=== PATIENT | female | born 1980 | race Caucasian/White ===

== ENCOUNTER 2018-09-11 08:25 | Emergency (ER) | payer OTHER ==
--- NOTE | 2018-09-11 09:24 | EDPHYS ---
Physician Documentation [facility] Name: Iraida Harris Age: 38 yrs Sex: Female : 1980 Arrival Date: 09/11/2018 Time: 08:29 Bed 16 Private MD: Shan Reno E ED Physician Jeromy Mcintosh HPI: 09/11 09:21 This 38 yrs old Female presents to ER via Ambulatory with complaints of jr8 Cough, Congestion. 09:21 The patient or guardian reports cough, that is intermittent, described as moderate, jr8 with productive sputum, that is white. Onset: The symptoms/episode began/occurred gradually, 3 day(s) ago. Severity of symptoms: At their worst the symptoms were mild, in the emergency department the symptoms are unchanged. Modifying factors: The symptoms are alleviated by nothing, the symptoms are aggravated by nothing. Associated signs and symptoms: Pertinent positives: rhinorrhea, nasal discharge. The patient has not experienced similar symptoms in the past. The patient has not recently seen a physician. 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 - Social history:: Smoking status: Patient/guardian denies using tobacco. - Ebola Screening: : Patient negative for fever greater than or equal to 101.5 degrees Fahrenheit, and additional compatible Ebola Virus Disease symptoms Patient denies exposure to infectious person Patient denies travel to an Ebola-affected area in the 21 days before illness onset No symptoms or risks identified at this time. ROS: 09:21 Eyes: Negative for injury, pain, redness, and discharge, Neck: Negative for injury, jr8 pain, and swelling, Cardiovascular: Negative for chest pain, palpitations, and edema, Abdomen/GI: Negative for abdominal pain, nausea, vomiting, diarrhea, and constipation, Back: Negative for injury and pain, MS/Extremity: Negative for injury and deformity, Skin: Negative for injury, rash, and discoloration, Neuro: Negative for headache, weakness, numbness, tingling, and seizure. 09:21 ENT: Positive for nasal discharge, rhinorrhea, sinus congestion, sinus pain, sore throat. 09:21 Respiratory: Positive for cough, Negative for shortness of breath, wheezing. Exam: 09:21 Eyes: Pupils equal round and reactive to light, extra-ocular motions intact. Lids and jr8 lashes normal. Conjunctiva and sclera are non-icteric and not injected. Cornea within normal limits. Periorbital areas with no swelling, redness, or edema. ENT: Nares patent. Mild turbinate swelling with mild discharge noted. no septal abnormalities noted. Tympanic membranes are normal and external auditory canals are clear. Oropharynx with no redness, swelling, or masses, exudates, or evidence of obstruction, uvula midline. Mucous membranes moist. Neck: Trachea midline, no thyromegaly or masses palpated, and no cervical lymphadenopathy. Supple, full range of motion without nuchal rigidity, or vertebral point tenderness. No Meningismus. Cardiovascular: Regular rate and rhythm with a normal S1 and S2. No gallops, murmurs, or rubs. Normal PMI, no JVD. No pulse deficits. Respiratory: Lungs have equal breath sounds bilaterally, clear to auscultation and percussion. No rales, rhonchi or wheezes noted. No increased work of breathing, no retractions or nasal flaring. Abdomen/GI: Soft, non-tender, with normal bowel sounds. No distension or tympany. No guarding or rebound. No evidence of tenderness throughout. Back: No spinal tenderness. No costovertebral tenderness. Full range of motion. Skin: Warm, dry with normal turgor. Normal color with no rashes, no lesions, and no evidence of cellulitis. MS/ Extremity: Pulses equal, no cyanosis. Neurovascular intact. Full, normal range of motion. Neuro: Awake and alert, GCS 15, oriented to person, place, time, and situation. Cranial nerves II-XII grossly intact. Motor strength 5/5 in all extremities. Sensory grossly intact. Cerebellar exam normal. Normal gait. Vital Signs: 09:07 BP 103 / 75; Pulse 100; Resp 17; Temp 97.8; Pulse Ox 100% on R/A; Weight 79.38 kg (R); sg Height 5 ft. 5 in. (165.10 cm) (R); 09:07 Body Mass Index 29.12 (79.38 kg, 165.10 cm) sg MDM: 08:59 Patient medically screened. jr8 09:21 Data reviewed: vital signs, nurses notes, and as a result, I will discharge patient. jr8 Data interpreted: Pulse oximetry: on room air is 100 %. Interpretation: normal. Counseling: I had a detailed discussion with the patient and/or guardian regarding: the historical points, exam findings, and any diagnostic results supporting the discharge/admit diagnosis, the need for outpatient follow up, a family practitioner, to return to the emergency department if symptoms worsen or persist or if there are any questions or concerns that arise at home. Administered Medications: 09:50 Drug: Decadron 10 mg Route: IM; Site: left ventrogluteal; sg 10:00 Follow up: Response: No adverse reaction sg Disposition: 12:50 Co-signature as Attending Physician, Jeromy Mcintosh MD I agree with the assessment and laith plan of care. Disposition: 09/11/18 09:23 Discharged to Home. Impression: Acute upper respiratory infection, unspecified. - Condition is Stable. - Discharge Instructions: Upper Respiratory Infection, Adult. - Prescriptions for Prednisone 20 mg Oral Tablet - take 1 tablet by ORAL route once daily for 5 days; 5 tablet. Tessalon Perles 100 mg Oral Capsule - take 1 capsule by ORAL route every 8 hours As needed; 15 capsule. Zithromax Z- Gurpreet 250 mg Oral Tablet - take 1 tablet by ORAL route as directed for 5 days Day 1 - take two (2) tablets one time. Day 2, 3, 4 , 5 take one (1) tablet once daily.; 6 tablet. - Medication Reconciliation Form, Thank You Letter, Antibiotic Education, Prescription Opioid Use form. - Follow up: Shan Reno MD; When: 7 - 10 days; Reason: If symptoms return, Recheck today's complaints, Continuance of care, Re-evaluation by your physician. - Problem is new. - Symptoms have improved. Signatures: Salvador Puri RN RN sg Anderson, Corey, MD MD cha Roszak, Josh, PA PA jr8 Corrections: (The following items were deleted from the chart) 09:54 09:23 09/11/2018 09:23 Discharged to Home. Impression: Acute upper respiratory sg infection, unspecified. Condition is Stable. Forms are Medication Reconciliation Form, Thank You Letter, Antibiotic Education, Prescription Opioid Use. Follow up: Shan Reno; When: 7 - 10 days; Reason: If symptoms return, Recheck today's complaints, Continuance of care, Re-evaluation by your physician. Problem is new. Symptoms have improved. jr8
--- NOTE | 2018-09-11 09:24 | ER ---
Nurse's Notes [facility] Name: Iraida Harris Age: 38 yrs Sex: Female : 1980 Arrival Date: 09/11/2018 Time: 08:29 Bed 16 Private MD: Shan Reno E Diagnosis: Acute upper respiratory infection, unspecified Presentation: 09/11 09:05 Presenting complaint: Patient states: Productive cough with chest congestion and sg painful deep breathing, symptoms worsen at night per pt, denies N/V/D/Fever. Transition of care: patient was not received from another setting of care. Resp Distress? No respiratory distress is noted at this time. Onset of symptoms was September 11, 2018. Risk Assessment: Do you want to hurt yourself or someone else? Patient reports no desire to harm self or others. Initial Sepsis Screen: Does the patient meet any 2 criteria? No. Patient's initial sepsis screen is negative. Does the patient have a suspected source of infection? No. Patient's initial sepsis screen is negative. Care prior to arrival: None. 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 - Social history:: Smoking status: Patient/guardian denies using tobacco. - Ebola Screening: : Patient negative for fever greater than or equal to 101.5 degrees Fahrenheit, and additional compatible Ebola Virus Disease symptoms Patient denies exposure to infectious person Patient denies travel to an Ebola-affected area in the 21 days before illness onset No symptoms or risks identified at this time. Screenin:20 Abuse screen: Denies threats or abuse. Denies injuries from another. Nutritional sg screening: No deficits noted. Tuberculosis screening: No symptoms or risk factors identified. Never had TB. Fall Risk None identified. Assessment: 09:20 General: Appears in no apparent distress. comfortable, well groomed, well developed, sg well nourished, Behavior is calm, cooperative, appropriate for age. Pain: Complains of pain in chest pain with deep breathing. Neuro: No deficits noted. Cardiovascular: Heart tones S1 S2 present Capillary refill is brisk in bilateral fingers Patient's skin is warm and dry. Chest pain is denied. Respiratory: Reports cough that is productive, pain with cough pain with respiration Airway is patent Respiratory effort is even, unlabored, Respiratory pattern is regular, symmetrical, Breath sounds are clear Denies shortness of breath. GI: No signs and/or symptoms were reported involving the gastrointestinal system. : No signs and/or symptoms were reported regarding the genitourinary system. EENT: No signs and/or symptoms were reported regarding the EENT system. Derm: Skin is pink, warm \T\ dry. Musculoskeletal: No signs and/or symptoms reported regarding the musculoskeletal system. 10:00 Reassessment: medication called into [facility], spoke with pt mother per pt request sg to inform her of the medications prescribed due to rehabilitation and former drug use. pt is thankful, awaiting transport back to rehab facility. Vital Signs: 09:07 BP 103 / 75; Pulse 100; Resp 17; Temp 97.8; Pulse Ox 100% on R/A; Weight 79.38 kg (R); sg Height 5 ft. 5 in. (165.10 cm) (R); 09:07 Body Mass Index 29.12 (79.38 kg, 165.10 cm) sg ED Course: 08:29 Patient arrived in ED. mr 08:30 Shan Reno MD is Private Physician. mr 08:56 Arm band placed on. sg 08:59 Mukul Eid PA is [facility]. jr8 08:59 Jeromy Mcintosh MD is Attending Physician. jr8 09:05 Salvador Puri, VICTOR HUGO is Primary Nurse. sg 09:07 Triage completed. sg 09:20 Patient has correct armband on for positive identification. Bed in low position. Call sg light in reach. Side rails up X2. Pulse ox on. NIBP on. Head of bed elevated. 09:23 Shan Reno MD is Referral Physician. jr8 09:50 No provider procedures requiring assistance completed. Patient did not have IV access sg during this emergency room visit. Administered Medications: 09:50 Drug: Decadron 10 mg Route: IM; Site: left ventrogluteal; sg 10:00 Follow up: Response: No adverse reaction sg Outcome: :23 Discharge ordered by MD. betts 09:50 Discharged to home ambulatory. 09:50 Condition: good 09:50 Discharge instructions given to patient, Instructed on follow up and referral plans. no drinking with medication, no driving heavy equipment, medication usage, safety practices, Demonstrated understanding of instructions, follow-up care, medications, Prescriptions given X 3. 09:54 Patient left the ED. Signatures: Salvador Puri RN RN sg Rivera, Mary mr Mukul Eid PA PA jr8
[2018-09-11] MEDS ORDERED: DEXAMETHASONE 10 MG/ML VIAL ONE (09:51)
== END 2018-09-11 09:54 | disposition home or self-care (01) ==
LOC: ER 08:25
DX: J06.9 Acute upper respiratory infection, unspecified (principal)
CPT/HCPCS: 96372; 99283; J1100

== ENCOUNTER 2019-03-09 01:00 | Emergency (ER) | payer OTHER ==
--- OUTSIDE RECORDS SUMMARY | 2019-03-09 01:03 | XMS REPORT ---
:1980 Author Organization [facility] Address [address] [place] [address] Phone Allergies, Adverse Reactions, Alerts Allergy Name Reaction Description Start Date Severity Status Provider WELLBUTRIN suicidal ideation Critical Active Lauren Mcqueen RN ABILIFY extreme irritability Critical Active Lauren Mcqueen RN Conditions or Problems Problem Name Problem Onset Status Entry Provider Comment Standard Annotate Code Date Date Description Screening V74.1 Lauren Screening for Charisse examination pulmonary TB RN for pulmonary tuberculosis Medication List Medication Instructions Start Stop Generic NDC Status Provider Patient Date Date Name Instruction Drug Treatment Unknown - unknown Immunizations Vaccine Administration Date Value Standard Description PPD results in mm 0 TB-PPD, interpretation of results negative Diagnostic Results Date Name Value Unit Range Description Nurse Visit: Nurse Visit - PPD reading - Challenge tests PPD results in mm 0 mm Encounters Date Encounter Provider Code Facility Est Patient Nurse - Lauren Mcqueen RN [id number] [facility] [place] [place] Adult Medicine 14:31:33 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
--- NOTE | 2019-03-09 02:05 | ER ---
Nurse's Notes [facility] Name: Iraida Harris Age: 38 yrs Sex: Female : 1980 Arrival Date: 03/09/2019 Time: 01:04 Bed Waiting Private MD: Diagnosis: Presentation: 03/09 01:33 Presenting complaint: Patient states: Right Saline Breast Implant "sagging or drooping" mw for 2 years. Tonight noticed more "sagging" and feels the right breast has decreased in size. Denies any trauma or pain. Pt very anxious in triage. Transition of care: patient was not received from another setting of care. Onset of symptoms was March 09, 2019. Risk Assessment: Do you want to hurt yourself or someone else? Patient reports no desire to harm self or others. Initial Sepsis Screen: Does the patient meet any 2 criteria? No. Patient's initial sepsis screen is negative. Does the patient have a suspected source of infection? No. Patient's initial sepsis screen is negative. Care prior to arrival: None. 01:33 Method Of Arrival: Ambulatory 01:33 Acuity: BHARAT 5 Triage Assessment: 01:39 General: Appears unkempt, Behavior is anxious. Pain: Denies pain. 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 Assessment: 01:45 Reassessment: Pt told registration that she is leaving because even if implant is fc leaking that it is saline and she would be ok. Vital Signs: 01:39 BP 109 / 64; Pulse 93; Resp 20; Temp 97; Pulse Ox 100% ; Weight 79.38 kg; Height 5 ft. mw 5 in. (165.10 cm); Pain 0/10; 01:39 Body Mass Index 29.12 (79.38 kg, 165.10 cm) ED Course: 01:04 Patient arrived in ED. am2 01:20 Patient's name was called from ER dameon. No response. 01:36 Triage completed. pranav Administered Medications: No medications were administered Outcome: 02:04 Patient left the ED. fc Signatures: Brenda Garza RN RN Rita Win RN RN Abby Madrigal am2
== END 2019-03-09 02:04 | disposition left against medical advice (07) ==
LOC: ER 01:00
DX: T85.898A Other specified complication of other internal prosthetic devices, implants and grafts, initial encounter (principal); Z98.82 Breast implant status; F90.9 Attention-deficit hyperactivity disorder, unspecified type; F32.9 Major depressive disorder, single episode, unspecified; F41.9 Anxiety disorder, unspecified; F60.3 Borderline personality disorder; Z53.21 Procedure and treatment not carried out due to patient leaving prior to being seen by health care provider
CPT/HCPCS: 99281

== ENCOUNTER 2019-03-11 14:47 | Emergency (ER) | payer OTHER ==
--- OUTSIDE RECORDS SUMMARY | 2019-03-11 14:59 | XMS REPORT ---
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
--- NOTE | 2019-03-11 16:32 | RAD REPORT ---
EXAM DESCRIPTION: RAD - Pelvis - 03/11/2019 3:44 pm CLINICAL HISTORY: Pelvic pain status post injury FINDINGS: No fracture or dislocation is seen.
--- NOTE | 2019-03-11 16:33 | RAD REPORT ---
EXAM DESCRIPTION: RAD - Foot Left 3 View - 03/11/2019 3:44 pm CLINICAL HISTORY: Left Foot pain status post fall FINDINGS: No fracture or dislocation is seen.
--- NOTE | 2019-03-11 16:34 | RAD REPORT ---
EXAM DESCRIPTION: RAD - Foot Right 3 View - 03/11/2019 3:45 pm CLINICAL HISTORY: Right foot pain status post injury FINDINGS: No fracture or dislocation is seen
--- NOTE | 2019-03-11 17:02 | ER ---
Nurse's Notes [facility] Name: Iraida Harris Age: 38 yrs Sex: Female : 1980 Arrival Date: 03/11/2019 Time: 14:49 Bed Treatment Private MD: Diagnosis: Fall (on) (from) unspecified stairs and steps;Myalgia;Pain in left foot;Pain in right foot Presentation: 03/11 14:52 Presenting complaint: Patient states: i fell down the stairs last night and hurt my R hj arm, R leg area and lower back; denies hitting head and LOC;. Transition of care: patient was not received from another setting of care. Onset of symptoms was March 11, 2019. Risk Assessment: Do you want to hurt yourself or someone else? Patient reports no desire to harm self or others. Initial Sepsis Screen: Does the patient meet any 2 criteria? No. Patient's initial sepsis screen is negative. Does the patient have a suspected source of infection? No. Patient's initial sepsis screen is negative. Care prior to arrival: None. 14:52 Method Of Arrival: Ambulatory 14:52 Acuity: BHARAT 4 14:55 Mechanism of Injury: Fall down 10 steps. Trauma event details: Injury occurred in the [facility], Injury occurred: at home. Injury occurred: March 10, 2019. Triage Assessment: 15:08 General: Appears in no apparent distress. uncomfortable, Behavior is cooperative, hj appropriate for age, anxious, crying. Pain: Complains of pain in right arm. 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 - Social history:: Smoking status: Patient uses tobacco products, Patient/guardian denies using alcohol. - Ebola Screening: : Patient negative for fever greater than or equal to 101.5 degrees Fahrenheit, and additional compatible Ebola Virus Disease symptoms Patient denies exposure to infectious person Patient denies travel to an Ebola-affected area in the 21 days before illness onset. Screenin:08 Abuse screen: Denies threats or abuse. Denies injuries from another. Nutritional hj screening: No deficits noted. Tuberculosis screening: No symptoms or risk factors identified. Fall Risk None identified. Vital Signs: 14:55 BP 113 / 68; Pulse 76; Resp 18; Temp 98.6(TE); Pulse Ox 100% on R/A; Weight 79.38 kg; hj Height 5 ft. 5 in. (165.10 cm); Pain 5/10; 14:55 Body Mass Index 29.12 (79.38 kg, 165.10 cm) hj ED Course: 14:49 Patient arrived in ED. mr 14:54 Triage completed. hj 15:05 Eboni Lynn FNP-C [facility]. kb 15:05 Gigi Raza MD is Attending Physician. kb 15:08 Hong Gutierres, RN is Primary Nurse. hj 15:08 Arm band placed on right wrist. hj 15:09 Patient has correct armband on for positive identification. Bed in low position. Call hj light in reach. Side rails up X 1. Adult w/ patient. 16:12 Foot Left 3 View In Process Unspecified. EDMS 16:12 Pelvis In Process Unspecified. EDMS 16:12 Foot Right 3 View In Process Unspecified. EDMS 16:59 No provider procedures requiring assistance completed. Patient did not have IV access hj during this emergency room visit. Administered Medications: No medications were administered Outcome: 16:47 Discharge ordered by . kb 17:00 Discharged to home ambulatory, with family. hj 17:00 Condition: stable 17:00 Discharge instructions given to patient, family, Instructed on discharge instructions, follow up and referral plans. medication usage, Demonstrated understanding of instructions, follow-up care, medications, Prescriptions given X 2. 17:00 Patient left the ED. Signatures: Dispatcher [employer] EDMS Eboni Lynn FNP-C FNP-Ckb Susan Francisco mr Hong Gutierres, RN RN betty Corrections: (The following items were deleted from the chart) 14:57 14:55 Pulse 76bpm; Resp 18bpm; Pulse Ox 100% RA; Temp 98.6F Temporal; 79.38 kg; Height hj 5 ft. 5 in.; BMI: 29.1; Pain 5/10; hj 15:37 14:52 Presenting complaint: Patient states: i fell down the stairs last night and hurt hj my R arma dn R leg area; denies hitting head and LOC; hj
--- NOTE | 2019-03-11 17:02 | EDPHYS ---
Physician Documentation [facility] Name: Iraida Harris Age: 38 yrs Sex: Female : 1980 Arrival Date: 03/11/2019 Time: 14:49 Bed Treatment Private MD: ED Physician Gigi Raza HPI: 03/11 15:25 This 38 yrs old Female presents to ER via Ambulatory with complaints of Fall kb Injury, Arm Pain. 15:25 Details of fall: The patient fell from a height, down approximately 8 stairs. Onset: kb The symptoms/episode began/occurred this morning. Associated injuries: The patient sustained right foot and left foot, painful injury. Severity of symptoms: At their worst the symptoms were moderate, in the emergency department the symptoms are unchanged. The patient has not experienced similar symptoms in the past. The patient has not recently seen a physician. Pt reports she tripped and fell down the stairs at her apt. States she fell down approx 8 stairs. Went back up the stairs and went to sleep. Woke up with pain/soreness all over body. States she cannot walk without limping because her feet hurt. Full ROM of all extremities. Pt has been ambulatory all day. Denies headache, LOC, neck pain. . 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 - Social history:: Smoking status: Patient uses tobacco products, Patient/guardian denies using alcohol. - Ebola Screening: : Patient negative for fever greater than or equal to 101.5 degrees Fahrenheit, and additional compatible Ebola Virus Disease symptoms Patient denies exposure to infectious person Patient denies travel to an Ebola-affected area in the 21 days before illness onset. ROS: 15:25 Constitutional: Negative for fever, chills, and weight loss, Eyes: Negative for injury, kb pain, redness, and discharge, ENT: Negative for injury, pain, and discharge, Neck: Negative for injury, pain, and swelling, Cardiovascular: Negative for chest pain, palpitations, and edema, Respiratory: Negative for shortness of breath, cough, wheezing, and pleuritic chest pain, Abdomen/GI: Negative for abdominal pain, nausea, vomiting, diarrhea, and constipation, Back: Negative for injury and pain, : Negative for injury, bleeding, discharge, and swelling, Neuro: Negative for headache, weakness, numbness, tingling, and seizure. 15:25 MS/extremity: Positive for pain, of the left foot and right foot. 15:25 Skin: Positive for ecchymosis, scattered on extremities. Exam: 15:25 Constitutional: This is a well developed, well nourished patient who is awake, alert, kb and in no acute distress. Head/Face: Normocephalic, atraumatic. Eyes: Pupils equal round and reactive to light, extra-ocular motions intact. Lids and lashes normal. Conjunctiva and sclera are non-icteric and not injected. Cornea within normal limits. Periorbital areas with no swelling, redness, or edema. ENT: Nares patent. No nasal discharge, no septal abnormalities noted. Tympanic membranes are normal and external auditory canals are clear. Oropharynx with no redness, swelling, or masses, exudates, or evidence of obstruction, uvula midline. Mucous membranes moist. Neck: Trachea midline, no thyromegaly or masses palpated, and no cervical lymphadenopathy. Supple, full range of motion without nuchal rigidity, or vertebral point tenderness. No Meningismus. Chest/axilla: Normal chest wall appearance and motion. Nontender with no deformity. No lesions are appreciated. Cardiovascular: Regular rate and rhythm with a normal S1 and S2. No gallops, murmurs, or rubs. Normal PMI, no JVD. No pulse deficits. Respiratory: Lungs have equal breath sounds bilaterally, clear to auscultation and percussion. No rales, rhonchi or wheezes noted. No increased work of breathing, no retractions or nasal flaring. Abdomen/GI: Soft, non-tender, with normal bowel sounds. No distension or tympany. No guarding or rebound. No evidence of tenderness throughout. Neuro: Awake and alert, GCS 15, oriented to person, place, time, and situation. Cranial nerves II-XII grossly intact. Motor strength 5/5 in all extremities. Sensory grossly intact. Cerebellar exam normal. Normal gait. 15:25 Musculoskeletal/extremity: Extremities: grossly normal except: noted in the right iliac crest: tenderness, ROM: intact in all extremities, Circulation is intact in all extremities. Sensation intact. Weight bearing: able to fully bear weight. 15:25 Skin: injury, contusion(s), that are superficial. Vital Signs: 14:55 BP 113 / 68; Pulse 76; Resp 18; Temp 98.6(TE); Pulse Ox 100% on R/A; Weight 79.38 kg; hj Height 5 ft. 5 in. (165.10 cm); Pain 5/10; 14:55 Body Mass Index 29.12 (79.38 kg, 165.10 cm) hj MDM: 15:05 Patient medically screened. kb 15:33 Data reviewed: vital signs, nurses notes. Data interpreted: Pulse oximetry: on room air kb is 100 %. Interpretation: normal. 16:46 Counseling: I had a detailed discussion with the patient and/or guardian regarding: the kb historical points, exam findings, and any diagnostic results supporting the discharge/admit diagnosis, radiology results, the need for outpatient follow up, a family practitioner, to return to the emergency department if symptoms worsen or persist or if there are any questions or concerns that arise at home. 03/11 15:16 Order name: Pelvis XRAY 03/11 15:16 Order name: Foot Right 3 View XRAY 03/11 15:16 Order name: Foot Left 3 View XRAY kb 03/11 16:12 Order name: Foot Left 3 View EDMS 03/11 16:12 Order name: Pelvis EDMS 03/11 16:12 Order name: Foot Right 3 View EDMS Administered Medications: No medications were administered Disposition: 03/12 07:30 Co-signature as Attending Physician, Gigi Raza MD I agree with the assessment and kdr plan of care. Disposition: 03/11/19 16:47 Discharged to Home. Impression: Fall (on) (from) unspecified stairs and steps, Myalgia, Pain in left foot, Pain in right foot. - Condition is Stable. - Discharge Instructions: Musculoskeletal Pain. - Prescriptions for Cyclobenzaprine 10 mg Oral Tablet - take 1 tablet by ORAL route every 8 hours As needed; 21 tablet. Diclofenac Sodium 75 mg Oral Tablet, Delayed Release (E.C.) - take 1 tablet by ORAL route 2 times per day As needed; 30 tablet. - Medication Reconciliation Form, Thank You Letter, Antibiotic Education, Prescription Opioid Use form. - Follow up: Emergency Department; When: As needed; Reason: Worsening of condition. Follow up: Private Physician; When: 2 - 3 days; Reason: Recheck today's complaints, Continuance of care, Re-evaluation by your physician. Signatures: Dispatcher [employer] EDMS Eboni Lynn, SLP-C SLP-CkGigi Avendano MD MD kdr Joaquin, Henry, RN RN hj Corrections: (The following items were deleted from the chart) 03/11 16:50 16:47 03/11/2019 16:47 Discharged to Home. Impression: Fall (on) (from) unspecified kb stairs and steps; Myalgia. Condition is Stable. Forms are Medication Reconciliation Form, Thank You Letter, Antibiotic Education, Prescription Opioid Use. Follow up: Emergency Department; When: As needed; Reason: Worsening of condition. Follow up: Private Physician; When: 2 - 3 days; Reason: Recheck today's complaints, Continuance of care, Re-evaluation by your physician. 16:59 15:16 Urine Dipstick-Ancillary ordered. [facility] 17:00 16:50 03/11/2019 16:47 Discharged to Home. Impression: Fall (on) (from) unspecified hj stairs and steps; Myalgia; Pain in left foot; Pain in right foot. Condition is Stable. Forms are Medication Reconciliation Form, Thank You Letter, Antibiotic Education, Prescription Opioid Use. Follow up: Emergency Department; When: As needed; Reason: Worsening of condition. Follow up: Private Physician; When: 2 - 3 days; Reason: Recheck today's complaints, Continuance of care, Re-evaluation by your physician. kb
== END 2019-03-11 17:00 | disposition home or self-care (01) ==
LOC: ER 14:47
DX: M79.671 Pain in right foot (principal); M79.10 Myalgia, unspecified site; W10.9XXA Fall (on) (from) unspecified stairs and steps, initial encounter; Y93.9 Activity, unspecified; Y92.9 Unspecified place or not applicable; Z72.0 Tobacco use; Z98.82 Breast implant status; F41.8 Other specified anxiety disorders
CPT/HCPCS: 72170; 99283